=== PATIENT | female | born 1995 | race Caucasian/White ===

== ENCOUNTER 2024-06-04 14:41 | Emergency (ER) | payer MEDICAID, SELFPAY ==
--- NOTE | 2024-06-04 14:46 | EKG_ITS ---
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
[2024-06-04 15:12] VITALS: BP 129/81; PULSE 109; RESP 18; TEMP 37.2; O2SAT 95; BMI 26.0
--- NOTE | 2024-06-04 15:16 | XR_ITS ---
Examination: PA lateral chest 2 views TECHNIQUE: Upright PA lateral chest 2 views Exam date and time: June 04, 2024 1521 hours INDICATIONS: Chest pain today. FINDINGS: Suspicious for early left base pneumonia Normal heart size Right lung is clear IMPRESSION: Suspicious for early left base pneumonia
--- NOTE | 2024-06-04 15:16 | PD.EDRME ---
Rapid Medical Screening Exam RME Arrival date/time: 06/04/24 14:41 28-year-old female everyday smoker presents the emergency department complains of chest pain Chief Complaint: Chest Pain Vital signs: Vital Signs Temperature 99 F 06/04/24 15:12 Pulse Rate 109 H 06/04/24 15:12 Respiratory Rate 18 06/04/24 15:12 Blood Pressure 129/81 06/04/24 15:12 Pulse Oximetry (%) 95 06/04/24 15:12 Oxygen Delivery Method Room Air 06/04/24 15:12
[2024-06-04 16:07] LABS: Basophils % (Auto) 0 % (0-2.5); Eosinophils # (Auto) 0.3 Thou/mm3 (0.0-0.5); Eosinophils % (Auto) 4 % (0-10); Hematocrit 42.9 % (36.0-46.0); Hemoglobin 14.6 g/dL (12.0-16.0); Immature Granulocytes % (Auto) 0 % (0-0); Immature Granulocytes Auto 0.03 Thou/mm3 (0.00-0.00); Lymphocytes # (Auto) 1.6 Thou/mm3 (1.0-4.8); Lymphocytes % (Auto) 20 % (10-50); Mean Corpuscular Hemoglobin 31.2 pg (25.0-35.0); Mean Corpuscular Volume 92 fL (80-100); Monocytes # (Auto) 0.8 Thou/mm3 (0.0-0.8); Monocytes % (Auto) 11 % (0-12); Neutrophils % (Auto) 65 % (37-80); Nucleated Red Blood Cell % 0 /100 WBC (0); Platelet Count 312 Thou/mm3 (140-440); RDW Standard Deviation 42.5 fL (36.4-46.3); Red Blood Count 4.68 Miln/mm3 (4.00-5.20); White Blood Count 7.7 Thou/mm3 (3.6-11.0)
[2024-06-04 16:22] LABS: INR 0.9 (0.9-1.3); Partial Thromboplastin Time 29.2 Seconds (22.0-36.0); Prothrombin Time 10.3 Seconds (9.0-12.2)
[2024-06-04 16:25] LABS: D-Dimer < 250 ng/mL (<600)
[2024-06-04 16:31] LABS: Alanine Aminotransferase 40 U/L (10-49); Albumin, Serum 4.9 gm/dL (3.5-5.0); Albumin/Globulin Ratio 1.8 (1.2-2.2); Alkaline Phosphatase 83 U/L (46-116); Anion Gap 7 (7-16); Aspartate Amino Transferase 29 U/L (0-34); BUN/Creatinine Ratio 14 Ratio (12-20); Bilirubin,Total 0.5 mg/dL (0.3-1.2); Blood Urea Nitrogen 13 mg/dL (9-23); Calcium 9.8 mg/dL (8.3-10.6); Calcium (Corrected) 9.8 mg/dL (8.5-10.1); Carbon Dioxide 27.2 mMol/L (20.0-31.0); Chloride 104 mMol/L (98-107); Creatinine (Component) 0.9 mg/dL (0.6-1.3); Estimated Creatinine Clearance 96.9 mL/min (>60); Globulin 2.7 gm/dL (2.3-3.5); Glucose 100 mg/dL (74-106); Lipase 38 U/L (12-53); Osmolality,Calculated 275 (275-295); Potassium 3.6 mMol/L (3.4-5.1); Sodium 138 mMol/L (136-145); Total Protein 7.6 gm/dL (5.7-8.2); Troponin I < 0.002 ng/mL (0.0-0.045); eGFR > 60 See Note
--- NOTE | 2024-06-04 18:56 | PD.EDCHEST ---
ED Chest Pain RME/HPI General Chief Complaint: Chest Pain Stated Complaint: chest pain going to left shoulder Time Seen by Provider: 06/04/24 18:08 Source: patient Arrival date/time: 06/04/24 14:41 28-year-old female with past medical history of daily smoker presents emergency department complaining of left-sided chest pain that worsens when she takes a deep breath that started since last night. Patient denies any fever, chills, cough, or any other associated symptom. Mode of arrival: ambulatory Limitations: no limitations RME / HPI RME / HPI narrative: 06/04/24 14:41 28-year-old female everyday smoker presents the emergency department complains of chest pain Related Data Previous Rx's ?Medication ?Instructions ?Recorded albuterol sulfate 90 mcg/actuation 2 puff inhalation Q6H PRN 07/16/19 aerosol inhaler shortness of breath #6.7 grams benzonatate 150 mg capsule 150 mg PO BID PRN cough #10 caps 07/16/19 ibuprofen 600 mg tablet 600 mg PO Q6H #30 tabs 07/16/19 beclomethasone dipropionate 40 1 inh inhalation BID #10.6 grams 07/17/19 mcg/actuation HFA breath activated aerosol (Qvar RediHaler) azithromycin 250 mg tablet See Rx Instructions PO .COMPLEX #6 06/10/23 tabs azithromycin 250 mg tablet See Rx Instructions PO .COMPLEX #6 06/04/24 tabs Allergies Allergy/AdvReac Type Severity Reaction Status Date / Time No Known Allergies Allergy Verified 06/10/23 12:39 Review of Systems Review of Systems Systems Reviewed: All systems reviewed, normal except as documented Constitutional Constitutional: Reports system reviewed and no additional complaints, except as documented, Denies body ache(s), Denies chills and Denies fever(s) Eyes Eyes: Reports system reviewed and no additional complaints, except as documented and Denies change in vision ENT Ears, Nose, Mouth, and Throat: Reports system reviewed and no additional complaints, except as documented, Denies disequilibrium, Denies dizziness, Denies sore throat and Denies vertigo Cardiovascular Cardiovascular: Reports system reviewed and no additional complaints, except as documented, Reports chest pain and Denies dyspnea Respiratory Respiratory: Reports system reviewed and no additional complaints, except as documented, Denies chest congestion, Denies cough and Denies dyspnea Gastrointestinal Gastrointestinal: Reports system reviewed and no additional complaints, except as documented, Denies abdominal pain, Denies nausea and Denies vomiting Musculoskeletal Musculoskeletal: Reports system reviewed and no additional complaints, except as documented, Denies abnormal gait and Denies arthralgias Integumentary/Breasts Skin/Breast: Reports system reviewed and no additional complaints, except as documented, Denies erythema, Denies rash and Denies wounds Neurologic Neurologic: Reports system reviewed and no additional complaints, except as documented, Denies abnormal gait, Denies disequilibrium, Denies dizziness and Denies vertigo Past Medical History Past Medical History NEUROLOGIC: Negative Neurological Disorders, Alzheimer's Disease or Seizures CARDIAC: Positive Hypercholesterolemia and Hypertension; Negative Cardiac Disorders, Myocardial Infarction, Cardiac Arrhythmia, Atrial Fibrillation, Angina, Heart Murmur, Coronary Artery Disease, Atherosclerotic Heart Disease, Peripheral Vascular Disease, Aneurysm, Congestive Heart Failure, Congenital Heart Disease, Valvular Heart Disease, Rheumatic Fever, Cardiomyopathy, Edema, Pericarditis, Cellulitis, Deep Vein Thrombosis, Hypotension or Varicose Veins RESPIRATORY: Positive Asthma and Bronchitis; Negative Chronic Obstructive Pulmonary Disease (COPD), Emphysema, Pneumonia, Pulmonary Fibrosis, Cystic Fibrosis, Tuberculosis, Pulmonary Embolism, Pulmonary Edema or Sleep Apnea GASTROINTESTINAL: Negative Gastrointestinal Disorders, Hepatitis, Cirrhosis, Pancreatitis, Celiac Disease, Gall Bladder Disease, Gastrointestinal Bleed, Esophageal Varices, Garvin's Esophagus, Colitis, Ulcerative Colitis, Diverticulitis, Diverticulosis, Ulcer, Colorectal Cancer, Irritable Bowel, Crohn's Disease, Obstructive Bowel, Hiatal Hernia, Hemorrhoids, Gastroesophageal Reflux Disease or Obesity GENITOURINARY: Positive Genitourinary Disorders and Kidney Stones; Negative Renal Disease, Polycystic Kidney Disease, Neurogenic Bladder, Inguinal Hernia, Dialysis or Prostate Cancer REPRODUCTIVE: Positive Endometriosis and Previous Pregnancies; Negative Breast Cancer, Genital Herpes, Gonorrhea, Pelvic Inflammatory Disease, Syphilis, Testicular Cancer or Uterine Prolapse MUSCULOSKELETAL: Positive Musculoskeletal Disorders and Arthritis; Negative Muscular Dystrophy, Myasthenia Gravis, Marfan's Syndrome, Bone Cancer, Rheumatoid Arthritis, Osteoporosis, Degenerative Disk Disease, Gout, Scoliosis, Carpal Tunnel Syndrome, Fibromyalgia, Fractures, Degenerative Joint Disease, Osteomyelitis or Poliovirus ENT: Negative Cataracts, Glaucoma, Blind, Retinal Detachment, Macular Degeneration, Ear Infection, Deafness or Eye Prosthesis ENDOCRINE: Negative Endocrine Disorders, Diabetes Mellitus Type 1, Diabetes Mellitus Type 2, Hypoglycemia, Juany's Syndrome, Limestone's Disease, Hyperthyroidism, Hypothyroidism, Parathyroid Disease, Pituitary Disease, Systemic Lupus Erythematosus, Syndrome of Inappropriate Antidiuretic Hormone (SIADH), Adrenal Disease or Graves' Disease HEMATOLOGIC: Positive Blood Disorders and Anemia; Negative Leukemia, Hemophilia, Thalassemia, Sickle Cell Disease or Clotting Problems PSYCHO/SOCIAL: Positive Depression and Anxiety; Negative Psychiatric Problems, Schizophrenia, Recreational Drug Use, Bipolar Disorder, Self-Mutilation, Attention Deficit Disorder, Attention Deficit Hyperactivity Disorder, Depression, Post Traumatic Stress Disorder or Eating Disorder OTHER HISTORY: Positive Blood Transfusions (2012) and Ovarian Cancer; Negative Hospitalization, Autoimmune Disease, Down Syndrome, Autism, Developmental Delay, Shingles, Falls, Blood Transfusion Reaction (na), Anesthesia Reactions (na), Organ Transplant, Chemotherapy, Radiation Therapy, Hyperbaric Therapy, MRSA, VRSA, Vancomycin-Resistant Enterococci, Human Immunodeficiency Virus (HIV), Chicken Pox, Measles, Mumps, Rubella (Zimbabwean Measles), Pertussis, Clostridium Difficile, Breast Cancer, Cervical Cancer, Colorectal Cancer, Lung Cancer, Prostate Cancer or Testicular Cancer Family History FAMILY HISTORY: Positive Family Psychiatric Problems, Family Respiratory Disorders, Family Cardiac Disorders, Family Cancer and Family Surgery; Negative Family Gastrointestinal Problems or Family Anesthesia Reaction Surgical History SURGICAL: Positive Arthroscopy and Tubal Ligation; Negative Cardiac Surgery, Open Heart Surgery, Coronary Artery Bypass Graft, Valve Replacement, Vascular Surgery, Coronary Stent, Cardiac Catheterization, Pacemaker, Angiogram, Auto Implanted Cardiovert Defib, Carotid Endarterectomy, Endocrine Surgery, Thyroidectomy, Ear Surgery, Eye Surgery, Nose Surgery, Oral Surgery, Tonsillectomy, Adenoidectomy, Cochlear Implant, Corneal Transplant, Throat Surgery, Abdominal Surgery, Tracheostomy, Gastric Bypass Surgery, Gastrostomy, Bowel Surgery, Nephrectomy, Joint Replacement, Amputation, Open Reduction Internal Fixation, Neurologic Surgery, Brain Shunt, Mastectomy, Lumpectomy, Hysterectomy, Section, Vasectomy or Organ Transplant Social History SMOKING STATUS: Current every day smoker SECOND HAND EXPOSURE: No ED Exam General Limitations: Present no limitations General appearance: Present alert and in no apparent distress Head Head exam: Present atraumatic Eye Eye exam: Present normal appearance, PERRL and EOMI ENT ENT exam: Present normal exam, normal oropharynx and mucous membranes moist Neck Neck exam: Present normal inspection, full ROM and trachea midline Chest Chest inspection: Present normal inspection and symmetric chest wall rise Respiratory Respiratory exam: Present normal lung sounds bilaterally Cardiovascular Cardiovascular exam: Present regular rate, normal rhythm and normal heart sounds Abdominal Exam Abdominal exam: Present soft and normal bowel sounds Extremities Exam Extremities exam: Present normal inspection and full ROM Back Exam Back exam: Present normal inspection and full ROM Neurological Exam Neurological exam: Present alert, oriented X3 and CN II-XII intact Psychiatric Psychiatric exam: Present normal affect and normal mood Skin Skin exam: Present warm, dry, intact and normal color Course Quality Measures none Orders Category Date Time Status EKG (ED ONLY) *Do not use* NOW Care 06/04/24 14:47 Completed EKG (ED Only) Stat Exams 06/04/24 14:46 Draft XR chest 2V Stat Exams 06/04/24 15:16 Completed CBC Stat Lab 06/04/24 15:31 Completed Comprehensive Metabolic Panel Stat Lab 06/04/24 15:31 Completed D-Dimer Stat Lab 06/04/24 15:31 Completed Lipase Stat Lab 06/04/24 15:31 Completed Partial Thromboplastin Time Stat Lab 06/04/24 15:31 Completed Prothrombin Time with INR Stat Lab 06/04/24 15:31 Completed Troponin I Stat Lab 06/04/24 15:31 Completed cefTRIAXone [Rocephin] 1,000 mg Med 06/04/24 18:56 Discontinued Lidocaine 1% 20 ml [Xylocaine 1% 20 ML] 2.1 ml IM X1 Vital Signs Vital signs: Vital Signs Temperature 99 F 06/04/24 15:12 Pulse Rate 109 H 06/04/24 15:12 Respiratory Rate 18 06/04/24 15:12 Blood Pressure 129/81 06/04/24 15:12 Pulse Oximetry (%) 95 06/04/24 15:12 Oxygen Delivery Method Room Air 06/04/24 15:12 95% room air within normal limits Procedures -ED EKG Interpretation #1: Date of EK06/04/24 Time of EK:11 Rate: 114 Interpretation: Interpreted by me EKG Impression: No acute ST-T changes, No ectopy, No ischemic changes, Sinus tachycardia and Normal QRS Chest Pain MDM Narrative MDM Narrative:: 28-year-old female with past medical history of daily smoker presents emergency department complaining of left-sided chest pain that worsens when she takes a deep breath that started since last night. Patient denies any fever, chills, cough, or any other associated symptom. CBC was unremarkable for any leukocytosis. CMP was unremarkable for any gross electrolyte abnormalities or transaminitis. EKG sinus tach with troponin normal limits. Chest x-ray finding suspicious for left basilar early pneumonia. Patient appears nontoxic and hemodynamically stable. Patient not appear to be in any respiratory distress. Patient given IM Rocephin and discharged with oral azithromycin and instructed to follow-up with primary care provider. Patient data External records reviewed:: [facility] previous records Clinical information provided by:: patient Social determinants that could affect healthcare access:: none Patient has the following chronic illnesses:: See chart How is presenting disease/condition affected by chronic disease/condition?: uneffected by Evaluation data The following diagnostics were reviewed and interpreted by me:: lab results, radiology exam(s) and EKG tracing(s) Lab and/or radiology exams considered but not ordered:: Ordered Interpretation Summary: Interpreted by me Medications / Prescriptions Medications or Prescriptions considered but not ordered:: Ordered Medication administrations:: Medication Administration History Discontinued Medications Ceftriaxone Sodium 1,000 mg/ (Lidocaine HCl 2.1 ml) 0 mg IM X1 ONE Stop: 06/04/24 18:57 Last Admin: 06/04/24 19:06 Dose: 1,000 mg Documented By: Given Consultations Consultation(s) initiated? (list below): No Diagnosis Chest Pain Differential Diagnosis: stable angina, unstable angina pectoris, atypical chest pain, st elevation myocardial infarction, costochondritis, chest pain and biliary colic Most likely diagnosis given after review of the tests above:: Community-acquired pneumonia Admission Indicated Admission indicated?: not indicated Admission Request Was there a request for admission?: No Disposition Plan Disposition Plan: Discharge Discharge Attestation Discharge Attestation: The patient and all family members were given an opportunity to ask questions and understood the discharge instructions. Discharge instructions specifically effects, indications for sooner follow up or return to the emergency department, and the expected course of current diagnosis. Patient condition: Stable Discharge Plan Plan Patient Disposition: HOME (Self Care) Disposition Comment: Stable Prescriptions/Referrals Prescriptions/Med Rec: New azithromycin 250 mg tablet See Rx Instructions PO .COMPLEX Qty: 6 0RF Rx Instructions: For 250 mg dose pack: take 500 mg today (day 1), then 250 mg for 4 days (days 2-5) No Action albuterol sulfate 90 mcg/actuation HFA aerosol inhaler 2 puff INH Q6H PRN (Reason: shortness of breath) Qty: 6.7 0RF benzonatate 150 mg capsule 150 mg PO BID PRN (Reason: cough) Qty: 10 0RF ibuprofen 600 mg tablet 600 mg PO Q6H Qty: 30 0RF Qvar RediHaler 40 mcg/actuation HFA aerosol breath activated 1 inh INH BID Qty: 10.6 0RF azithromycin 250 mg tablet See Rx Instructions .ROUTE .COMPLEX Qty: 6 0RF Rx Instructions: For 250 mg dose pack: take 500 mg today (day 1), then 250 mg for 4 days (days 2-5) Referrals: No Primary/Family,Physician [Primary Care Provider] - In 1 week Problem List Clinical Impression: Community acquired pneumonia Patient/Caregiver Discharge Instructions Discharge Activity: activity as tolerated Education Materials: ED Pneumonia (Adult) Additional Instructions: Take medication as prescribed. Follow-up with primary care provider in 2 to 3 days. Return to the emergency department for any worsening symptoms or as needed. Print Language: Moroccan Stand Alone Forms: Vee Award Info., Work/School Release, Patient Portal Info Letter DAYNA/RAYMOND Supervising Physician DAYNA/RAYMOND Supervising Physician: Dr. Lester
[2024-06-04] MEDS: cefTRIAXone 1,000 MG, LIDOCAINE 1% 20 ML 2.1 ML IM (19:06)
== END 2024-06-04 19:11 | disposition home or self-care (01) ==
PROVIDERS: Nurse Practitioner Primary Care; Emergency Provider Emergency Medicine
DX: J18.9 Pneumonia, unspecified organism (principal); R00.0 Tachycardia, unspecified; F17.210 Nicotine dependence, cigarettes, uncomplicated; I10 Essential (primary) hypertension; E78.00 Pure hypercholesterolemia, unspecified
CPT/HCPCS: 36415; 71046; 80053; 80307; 81001; 81025; 83690; 84484; 85025; 85379; 85610; 85730; 93005; 96372; 99283; J0696; J3490

== ENCOUNTER 2024-09-05 10:13 | Emergency (ER) | payer MEDICAID, SELFPAY ==
[2024-09-05 10:24] VITALS: BP 111/75; PULSE 100; RESP 16; TEMP 37.2; O2SAT 95; BMI 25.8
--- NOTE | 2024-09-05 10:34 | XR_ITS ---
Examination: Forearm, left, 2 views. Technique: Forearm, AP, lateral 2 views Date and time of exam: September 05, 2024 1051 hrs. Indications: Patient fell today with injury to the forearm, forearm pain. Findings: No fracture or dislocation No foreign body Impression: No fracture or dislocation
--- NOTE | 2024-09-05 10:34 | XR_ITS ---
Examination: Left elbow 3 views Technique: Elbow AP, oblique, lateral 3 views Exam date and time: September 05, 2024 1051 hrs. Indications: Patient fell today with injury to the elbow, elbow pain. Findings: No acute fracture or dislocation Large elbow effusion Impression: No acute fracture Given the large elbow effusion, recommend short-term follow-up elbow films as clinically warranted.
--- NOTE | 2024-09-05 11:53 | PD.EDUPEX ---
Upper Extremity Injury RME/HPI General Chief Complaint: Extremity Injury, Upper Stated Complaint: Left ARM PAIN Time Seen by Provider: 09/05/24 10:16 Arrival date/time: 09/05/24 10:13 28-year-old female presents to the emergency department complaints of left arm pain patient reports that she fell while on skateboard yesterday patient reports that she has been having pain to the mid forearm and elbow Limitations: no limitations Related Data Previous Rx's ?Medication ?Instructions ?Recorded albuterol sulfate 90 mcg/actuation 2 puff inhalation Q6H PRN 07/16/19 aerosol inhaler shortness of breath #6.7 grams benzonatate 150 mg capsule 150 mg PO BID PRN cough #10 caps 07/16/19 ibuprofen 600 mg tablet 600 mg PO Q6H #30 tabs 07/16/19 beclomethasone dipropionate 40 1 inh inhalation BID #10.6 grams 07/17/19 mcg/actuation HFA breath activated aerosol (Qvar RediHaler) azithromycin 250 mg tablet See Rx Instructions PO .COMPLEX #6 06/10/23 tabs azithromycin 250 mg tablet See Rx Instructions PO .COMPLEX #6 06/04/24 tabs ibuprofen 600 mg tablet 600 mg PO Q6H #30 tabs 09/05/24 Allergies Allergy/AdvReac Type Severity Reaction Status Date / Time No Known Allergies Allergy Verified 06/10/23 12:39 Review of Systems Review of Systems Systems Reviewed: All systems reviewed, normal except as documented Constitutional Constitutional: Reports system reviewed and no additional complaints, except as documented, Denies fever(s) and Denies headache(s) Eyes Eyes: Reports system reviewed and no additional complaints, except as documented and Denies blurry vision ENT Ears, Nose, Mouth, and Throat: Reports system reviewed and no additional complaints, except as documented, Denies headache(s), Denies nasal congestion and Denies nasal discharge Cardiovascular Cardiovascular: Reports system reviewed and no additional complaints, except as documented, Denies chest pain and Denies dyspnea Respiratory Respiratory: Reports system reviewed and no additional complaints, except as documented, Denies chest congestion, Denies cough and Denies dyspnea Gastrointestinal Gastrointestinal: Reports system reviewed and no additional complaints, except as documented and Denies abdominal pain Musculoskeletal Musculoskeletal: Reports system reviewed and no additional complaints, except as documented, Reports arthralgias, Denies deformity and Reports stiffness Integumentary/Breasts Skin/Breast: Reports system reviewed and no additional complaints, except as documented and Denies rash Neurologic Neurologic: Reports system reviewed and no additional complaints, except as documented, Reports as per HPI and Denies headache(s) Past Medical History Past Medical History NEUROLOGIC: Negative Neurological Disorders, Alzheimer's Disease or Seizures CARDIAC: Positive Hypercholesterolemia and Hypertension; Negative Cardiac Disorders, Myocardial Infarction, Cardiac Arrhythmia, Atrial Fibrillation, Angina, Heart Murmur, Coronary Artery Disease, Atherosclerotic Heart Disease, Peripheral Vascular Disease, Aneurysm, Congestive Heart Failure, Congenital Heart Disease, Valvular Heart Disease, Rheumatic Fever, Cardiomyopathy, Edema, Pericarditis, Cellulitis, Deep Vein Thrombosis, Hypotension or Varicose Veins RESPIRATORY: Positive Asthma and Bronchitis; Negative Chronic Obstructive Pulmonary Disease (COPD), Emphysema, Pneumonia, Pulmonary Fibrosis, Cystic Fibrosis, Tuberculosis, Pulmonary Embolism, Pulmonary Edema or Sleep Apnea GASTROINTESTINAL: Negative Gastrointestinal Disorders, Hepatitis, Cirrhosis, Pancreatitis, Celiac Disease, Gall Bladder Disease, Gastrointestinal Bleed, Esophageal Varices, Garvin's Esophagus, Colitis, Ulcerative Colitis, Diverticulitis, Diverticulosis, Ulcer, Colorectal Cancer, Irritable Bowel, Crohn's Disease, Obstructive Bowel, Hiatal Hernia, Hemorrhoids, Gastroesophageal Reflux Disease or Obesity GENITOURINARY: Positive Genitourinary Disorders and Kidney Stones; Negative Renal Disease, Polycystic Kidney Disease, Neurogenic Bladder, Inguinal Hernia, Dialysis or Prostate Cancer REPRODUCTIVE: Positive Endometriosis and Previous Pregnancies; Negative Breast Cancer, Genital Herpes, Gonorrhea, Pelvic Inflammatory Disease, Syphilis, Testicular Cancer or Uterine Prolapse MUSCULOSKELETAL: Positive Musculoskeletal Disorders and Arthritis; Negative Muscular Dystrophy, Myasthenia Gravis, Marfan's Syndrome, Bone Cancer, Rheumatoid Arthritis, Osteoporosis, Degenerative Disk Disease, Gout, Scoliosis, Carpal Tunnel Syndrome, Fibromyalgia, Fractures, Degenerative Joint Disease, Osteomyelitis or Poliovirus ENT: Negative Cataracts, Glaucoma, Blind, Retinal Detachment, Macular Degeneration, Ear Infection, Deafness or Eye Prosthesis ENDOCRINE: Negative Endocrine Disorders, Diabetes Mellitus Type 1, Diabetes Mellitus Type 2, Hypoglycemia, Juany's Syndrome, Dakota's Disease, Hyperthyroidism, Hypothyroidism, Parathyroid Disease, Pituitary Disease, Systemic Lupus Erythematosus, Syndrome of Inappropriate Antidiuretic Hormone (SIADH), Adrenal Disease or Graves' Disease HEMATOLOGIC: Positive Blood Disorders and Anemia; Negative Leukemia, Hemophilia, Thalassemia, Sickle Cell Disease or Clotting Problems PSYCHO/SOCIAL: Positive Depression and Anxiety; Negative Psychiatric Problems, Schizophrenia, Recreational Drug Use, Bipolar Disorder, Self-Mutilation, Attention Deficit Disorder, Attention Deficit Hyperactivity Disorder, Depression, Post Traumatic Stress Disorder or Eating Disorder OTHER HISTORY: Positive Blood Transfusions (2012) and Ovarian Cancer; Negative Hospitalization, Autoimmune Disease, Down Syndrome, Autism, Developmental Delay, Shingles, Falls, Blood Transfusion Reaction (na), Anesthesia Reactions (na), Organ Transplant, Chemotherapy, Radiation Therapy, Hyperbaric Therapy, MRSA, VRSA, Vancomycin-Resistant Enterococci, Human Immunodeficiency Virus (HIV), Chicken Pox, Measles, Mumps, Rubella ([place] Measles), Pertussis, Clostridium Difficile, Breast Cancer, Cervical Cancer, Colorectal Cancer, Lung Cancer, Prostate Cancer or Testicular Cancer Family History FAMILY HISTORY: Positive Family Psychiatric Problems, Family Respiratory Disorders, Family Cardiac Disorders, Family Cancer and Family Surgery; Negative Family Gastrointestinal Problems or Family Anesthesia Reaction Surgical History SURGICAL: Positive Arthroscopy and Tubal Ligation; Negative Cardiac Surgery, Open Heart Surgery, Coronary Artery Bypass Graft, Valve Replacement, Vascular Surgery, Coronary Stent, Cardiac Catheterization, Pacemaker, Angiogram, Auto Implanted Cardiovert Defib, Carotid Endarterectomy, Endocrine Surgery, Thyroidectomy, Ear Surgery, Eye Surgery, Nose Surgery, Oral Surgery, Tonsillectomy, Adenoidectomy, Cochlear Implant, Corneal Transplant, Throat Surgery, Abdominal Surgery, Tracheostomy, Gastric Bypass Surgery, Gastrostomy, Bowel Surgery, Nephrectomy, Joint Replacement, Amputation, Open Reduction Internal Fixation, Neurologic Surgery, Brain Shunt, Mastectomy, Lumpectomy, Hysterectomy, Section, Vasectomy or Organ Transplant Social History SMOKING STATUS: Light (< 1 pack/day) SECOND HAND EXPOSURE: No ED Exam General Limitations: Present no limitations General appearance: Present alert and in no apparent distress Head Head exam: Present atraumatic Eye Eye exam: Present normal appearance, PERRL and EOMI ENT ENT exam: Present normal exam, normal oropharynx and mucous membranes moist Neck Neck exam: Present normal inspection, full ROM and trachea midline Chest Chest inspection: Present normal inspection and symmetric chest wall rise Respiratory Respiratory exam: Present normal lung sounds bilaterally Cardiovascular Cardiovascular exam: Present regular rate, normal rhythm and normal heart sounds Abdominal Exam Abdominal exam: Present soft and normal bowel sounds Extremities Exam Extremities exam: Present full ROM, tenderness, normal capillary refill and joint swelling Back Exam Back exam: Present normal inspection and full ROM Neurological Exam Neurological exam: Present alert, oriented X3 and CN II-XII intact Psychiatric Psychiatric exam: Present normal affect and normal mood Skin Skin exam: Present warm, dry, intact and normal color Course Quality Measures none Orders Category Date Time Status XR elbow comp LT min 3V Stat Exams 09/05/24 10:34 Completed XR forearm LT 2V Stat Exams 09/05/24 10:34 Completed Vital Signs Vital signs: Vital Signs Temperature 99.0 F 09/05/24 10:24 Pulse Rate 100 09/05/24 10:24 Respiratory Rate 16 09/05/24 10:24 Blood Pressure 111/75 09/05/24 10:24 Pulse Oximetry (%) 95 09/05/24 10:24 Oxygen Delivery Method Room Air 09/05/24 10:24 O2 saturation 95% room air within normal limits Extremity Injury MDM Narrative MDM Narrative:: 28-year-old female presents to the emergency department complaints of left arm pain patient reports that she fell while on skateboard yesterday patient reports that she has been having pain to the mid forearm and elbow On exam patient is tenderness left forearm left elbow patient does have full range of motion but reports pain with movement Imaging obtained no acute fracture dislocation noted Patient discharged home in no distress to follow-up with primary care doctor in the next 24 to 48 hours and for any worsening symptoms to return to the ER immediately Patient data External records reviewed:: [facility] previous records Clinical information provided by:: patient Social determinants that could affect healthcare access:: none Patient has the following chronic illnesses:: none How is presenting disease/condition affected by chronic disease/condition?: no chronic disease Evaluation data The following diagnostics were reviewed and interpreted by me:: radiology exam(s) Lab and/or radiology exams considered but not ordered:: Radiology obtain Interpretation Summary: Reviewed by me Medications / Prescriptions Medications or Prescriptions considered but not ordered:: Given Medication administrations:: Given Consultations Consultation(s) initiated? (list below): No Diagnosis Upper Extremity Injury Differential Diagnosis: other Most likely diagnosis given after review of the tests above:: Elbow sprain Admission Indicated Admission indicated?: not indicated Admission Request Was there a request for admission?: No Disposition Plan Disposition Plan: Discharge Discharge Attestation Discharge Attestation: The patient and all family members were given an opportunity to ask questions and understood the discharge instructions. Discharge instructions specifically effects, indications for sooner follow up or return to the emergency department, and the expected course of current diagnosis. Patient condition: Stable Discharge Plan Plan Patient Disposition: HOME (Self Care) Disposition Comment: Stable Prescriptions/Referrals Prescriptions/Med Rec: New ibuprofen 600 mg tablet 600 mg PO Q6H Qty: 30 0RF No Action albuterol sulfate 90 mcg/actuation HFA aerosol inhaler 2 puff INH Q6H PRN (Reason: shortness of breath) Qty: 6.7 0RF benzonatate 150 mg capsule 150 mg PO BID PRN (Reason: cough) Qty: 10 0RF ibuprofen 600 mg tablet 600 mg PO Q6H Qty: 30 0RF Qvar RediHaler 40 mcg/actuation HFA aerosol breath activated 1 inh INH BID Qty: 10.6 0RF azithromycin 250 mg tablet See Rx Instructions .ROUTE .COMPLEX Qty: 6 0RF Rx Instructions: For 250 mg dose pack: take 500 mg today (day 1), then 250 mg for 4 days (days 2-5) azithromycin 250 mg tablet See Rx Instructions PO .COMPLEX Qty: 6 0RF Rx Instructions: For 250 mg dose pack: take 500 mg today (day 1), then 250 mg for 4 days (days 2-5) Referrals: No Primary/Family,Physician [Primary Care Provider] - In 1 week Problem List Clinical Impression: Sprain of elbow, left Patient/Caregiver Discharge Instructions Education Materials: ED Sprain, Elbow Additional Instructions: Please follow up with your primary care doctor in the next 24-48hrs for any worsening symptoms return here immediately Print Language: Trinidadian Stand Alone Forms: Vee Award Info., Work/School Release, Patient Portal Info Letter PA/[employer] Supervising Physician PA/RAYMOND Supervising Physician: Dr jean
== END 2024-09-05 12:44 | disposition home or self-care (01) ==
PROVIDERS: Emergency Provider Emergency Medicine
DX: S53.402A Unspecified sprain of left elbow, initial encounter (principal); V00.131A Fall from skateboard, initial encounter; Y93.51 Activity, roller skating (inline) and skateboarding
CPT/HCPCS: 73080; 73090; 99283